=== PATIENT | female | born 1940 | race American Indian/Alaskan Native ===

== ENCOUNTER 2016-05-19 18:29 | Inpatient (IN) | payer MEDICARE ==
[2016-05-19 18:44] VITALS: BMI 25.6
--- NOTE | 2016-05-19 20:05 | C.PDOC ---
History Of Present Illness 76 year old female presents to the ED with complaints of upper chest pain, neck pain, bilateral shoulder pain, and upper back pain for the past 5 days. Patient states she also has a productive cough and notes the pain is worse with coughing. She has had could symptoms for the past month and denies fever, chills , SOB, or any other complaints at this time. Time Seen by Provider: 05/19/16 19:41 Chief Complaint (Nursing): Shortness Of Breath History Per: Patient History/Exam Limitations: no limitations Onset/Duration Of Symptoms: Days Current Symptoms Are (Timing): Still Present Exacerbating Factor(s): Coughing Severity: Mild Associated Symptoms: Productive Cough. denies: Fever, Chills Past Medical History Reviewed: Historical Data, Nursing Documentation, Vital Signs Vital Signs: Last Vital Signs Temp 98.1 F 05/20/16 07:20 Pulse 83 05/20/16 07:20 Resp 16 05/20/16 07:20 BP 171/69 H 05/20/16 07:20 Pulse Ox 98 05/20/16 07:20 - Medical History PMH: Arthritis, Bronchitis, CAD, HTN, Hypercholesterolemia - [facility] Procedures CORONAR ARTERIOGR-2 CATH (07/02/11) INJECT/INFUSE PLATELET INHIBITOR (07/02/11) INSERTION OF ONE VASCULAR STENT (07/02/11) INSRT OF DRUG-ELUTING CORON ARTERY STENTS(S) (07/02/11) INTRAVASCULAR IMAGING OF CORONARY VESSELS (07/02/11) LEFT HEART CARDIAC CATH (07/02/11) LT HEART ANGIOCARDIOGRAM (07/02/11) PERCUTANEOUS TRANSLUMINAL CORONARY ANGIOPLASTY [PTCA] (07/02/11) PROCEDURE ON SINGLE VESSEL (07/02/11) Family History: States: Unknown Family Hx - Social History Hx Tobacco Use: Yes (Smoked for many year but quit) Hx Alcohol Use: No Hx Substance Use: No - Immunization History Hx Tetanus Toxoid Vaccination: No Hx Influenza Vaccination: No Hx Pneumococcal Vaccination: No Review Of Systems Except As Marked, All Systems Reviewed And Found Negative. Constitutional: Negative for: Fever, Chills Cardiovascular: Negative for: Palpitations Respiratory: Positive for: Cough, Sputum. Negative for: Shortness of Breath Gastrointestinal: Negative for: Nausea, Vomiting, Abdominal Pain Musculoskeletal: Positive for: Neck Pain, Shoulder Pain, Back Pain (+Upper back pain), Other (+Upper chest pain) Neurological: Negative for: Weakness, Numbness Physical Exam - Physical Exam Appears: Well, Non-toxic, No Acute Distress Skin: Warm, Dry Head: Atraumatic, Normacephalic Eye(s): bilateral: Normal Inspection Oral Mucosa: Moist Neck: Normal ROM, Supple Chest: Symmetrical, No Deformity Cardiovascular: Rhythm Regular Respiratory: Decreased Breath Sounds (+Diminished breath sounds), No Accessory Muscle Use, No Rales, No Rhonchi, Wheezing Extremity: Normal ROM Neurological/Psych: Oriented x3, Normal Speech, Normal Cognition ED Course And Treatment - Laboratory Results Result Diagrams: 05/20/16 09:31 05/20/16 04:57 O2 Sat by Pulse Oximetry: 100 (Room air) Pulse Ox Interpretation: Normal Medical Decision Making Medical Decision Making: Plan: -CXR -Blood work -Flu swab -DuoNeb -Solu-Medrol -Reassess EKG: Normal Sinus Rhythm, 92 bpm. LVH with repolarization abnormality. No STEMI. CXR: +Bibasilar atelectasis. + Bilateral Pleural effusion. Progress: 22:53- Case discussed with Dr. Stockton who agreed with plan and admission to telemetry. requests prbc transfusion 2 units. Disposition - Disposition Disposition Time: 22:53 Condition: STABLE - Clinical Impression Clinical Impression: Anemia, iron deficiency, Pneumonia, Obstructive chronic bronchitis with exacerbation - Scribe Statement The provider has reviewed the documentation as recorded by the Scribe Alexa Ortiz. Provider Attestation: All medical record entries made by the Scribe were at my direction and personally dictated by me. I have reviewed the chart and agree that the record accurately reflects my personal performance of the history, physical exam, medical decision making, and the department course for this patient. I have also personally directed, reviewed, and agree with the discharge instructions and disposition.
[2016-05-19 20:07] LABS: BASO # 0.1 K/uL (0.0-0.2); BASO % 0.3 % (0.0-2.0); EOS % 0.1 % (0.0-4.0); HEMATOCRIT 25.1 % (34.0-47.0); LYMPH % 18.8 % (20.0-40.0); MEAN CELL VOLUME 67.9 fL (81.0-99.0); MEAN CORPUSCULAR HEMOGLOBIN 20.6 pg (27.0-31.0); MEAN CORPUSCULAR HGB CONC 30.3 g/dL (33.0-37.0); MEAN PLATELET VOLUME 7.7 fL (7.2-11.7); MONO % 6.5 % (0.0-10.0); RED CELL DISTRIBUTION WIDTH 20.2 % (11.5-14.5); WHITE BLOOD COUNT 15.7 K/uL (4.8-10.8)
[2016-05-19] MEDS: Albuterol-Ipratrop 3 mg / 0.5 (3 ml) UD IH SCH ×3 (20:10→20:40)
[2016-05-19 20:14] LABS: CHLORIDE 92 mmol/L (98-107)
[2016-05-19 20:15] LABS: POTASSIUM 3.4 mmol/L (3.6-5.2); SODIUM 135 mmol/L (132-148)
[2016-05-19 20:17] LABS: ALKALINE PHOSPHATASE 95 U/L (38-126); ALT/SGPT 9 U/L (9-52); AST/SGOT 16 U/L (14-36); BILIRUBIN,TOTAL 0.5 mg/dL (0.2-1.3); BLOOD UREA NITROGEN 15 mg/dL (7-17); CARBON DIOXIDE 24 mmol/L (22-30); GFR AFRICAN-AMERICAN > 60; TOTAL PROTEIN 8.9 g/dL (6.3-8.3)
[2016-05-19 20:18] LABS: CALCIUM 9.5 mg/dl (8.6-10.4); GLUCOSE,RANDOM 111 mg/dL (65-105)
[2016-05-19] MEDS ORDERED: MethylPREDNISolone 40 mg Vial ONE (20:22)
[2016-05-19] MEDS ORDERED: Albuterol-Ipratrop 3 mg / 0.5 (3 ml) UD ONE (20:22)
[2016-05-19 20:35] LABS: VENOUS BLOOD GAS BASE EXCESS -0.2 mmol/L (0.0-2.0); VENOUS BLOOD GAS PCO2 47 mmHg (40-60); VENOUS BLOOD PH 7.35 (7.32-7.43)
[2016-05-19] MEDS ORDERED: Azithromycin 500 MG in Sodium Chloride 0.9% 250 ML IVPB STA (21:36)
[2016-05-19] MEDS ORDERED: cefTRIAXone IV 1 gm in Dextros 50 ML IVPB ONE (21:48)
[2016-05-19] MEDS ORDERED: Azithromycin 500mg/250ML NS 250 ML IVPB ONE (22:45)
[2016-05-20] MEDS ORDERED: Morphine 4 MG/ML VIAL ONE (00:14)
[2016-05-20] MEDS: Albuterol-Ipratrop 3 mg / 0.5 (3 ml) UD INH SCH ×6 (03:58→23:33)
[2016-05-20 05:03] LABS: BASO % 0.2 % (0.0-2.0); HEMATOCRIT 28.2 % (34.0-47.0); LYMPH # 0.3 K/uL (1.0-4.3); LYMPH % 1.7 % (20.0-40.0); MEAN CELL VOLUME 71.4 fL (81.0-99.0); MEAN CORPUSCULAR HEMOGLOBIN 21.8 pg (27.0-31.0); MEAN CORPUSCULAR HGB CONC 30.6 g/dL (33.0-37.0); MEAN PLATELET VOLUME 7.7 fL (7.2-11.7); MONO # 0.2 K/uL (0.0-0.8); MONO % 1.2 % (0.0-10.0); PLATELET COUNT 410 K/uL (130-400); RED CELL DISTRIBUTION WIDTH 21.8 % (11.5-14.5); WHITE BLOOD COUNT 16.5 K/uL (4.8-10.8)
[2016-05-20 06:13] LABS: ALB/GLOB RATIO 0.9 (1.0-2.1); ALKALINE PHOSPHATASE 85 U/L (38-126); ALT/SGPT 25 U/L (9-52); AST/SGOT 16 U/L (14-36); BILIRUBIN,TOTAL 0.9 mg/dL (0.2-1.3); BLOOD UREA NITROGEN 12 mg/dL (7-17); CALCIUM 8.9 mg/dl (8.6-10.4); CARBON DIOXIDE 22 mmol/L (22-30); CHLORIDE 100 mmol/L (98-107); GFR AFRICAN-AMERICAN > 60; GLUCOSE,RANDOM 188 mg/dL (65-105); POTASSIUM 3.4 mmol/L (3.6-5.2); SODIUM 137 mmol/L (132-148); TOTAL PROTEIN 7.9 g/dL (6.3-8.3)
[2016-05-20 07:18] LABS: NEUTROPHIL 93 % (50-75); TOTAL CELLS COUNTED 100
[2016-05-20 07:20] LABS: LARGE PLATELETS PRESENT
[2016-05-20] MEDS ORDERED: Albuterol-Ipratrop 3 mg / 0.5 (3 ml) UD ONE ×2 (08:00→11:18)
--- NOTE | 2016-05-20 08:11 | RAD ---
HISTORY: sob x 5 days COMPARISON: No prior. FINDINGS: LUNGS: Bibasilar opacities are seen more prominent on the right. Findings could represent atelectasis or infiltrates. PLEURA: Blunting of the right costophrenic angle is noted. CARDIOVASCULAR: Normal. OSSEOUS STRUCTURES: No significant abnormalities. VISUALIZED UPPER ABDOMEN: Normal. OTHER FINDINGS: None. IMPRESSION: Bibasilar opacities may represent atelectasis. Blunting of the costophrenic angles.
[2016-05-20 09:39] LABS: BASO # 0.1 K/uL (0.0-0.2); BASO % 0.3 % (0.0-2.0); EOS % 0.1 % (0.0-4.0); HEMATOCRIT 32.6 % (34.0-47.0); LYMPH % 5.8 % (20.0-40.0); MEAN CORPUSCULAR HEMOGLOBIN 22.6 pg (27.0-31.0); MEAN CORPUSCULAR HGB CONC 30.5 g/dL (33.0-37.0); MEAN PLATELET VOLUME 7.6 fL (7.2-11.7); MONO # 0.4 K/uL (0.0-0.8); MONO % 2.3 % (0.0-10.0); NRBC % 0.1 % (0.0-2.0); PLATELET COUNT 347 K/uL (130-400); RED CELL DISTRIBUTION WIDTH 23.1 % (11.5-14.5)
[2016-05-20 09:41] LABS: MEAN CELL VOLUME 74.1 fL (81.0-99.0)
[2016-05-20] MEDS ORDERED: Azithromycin 500 MG in Sodium Chloride 0.9% 250 ML IVPB SCH (10:00)
[2016-05-20 10:04] LABS: NEUTROPHIL 93 % (50-75); TOTAL CELLS COUNTED 100
[2016-05-20 10:07] LABS: LARGE PLATELETS PRESENT
--- NOTE | 2016-05-20 10:46 | CT ---
CT chest without IV contrast Indication: Abnormal chest x-ray Technique: Contiguous axial images were obtained through the chest without intravenous contrast enhancement. Sagittal and coronal reconstructions were generated and reviewed. Radiation dose (DLP): 284.49 MGy-cm. Comparison: Chest x-ray performed 05/19/16 Findings: Visualized portions of the inferior thyroid gland appear grossly unremarkable except for probable 11 mm hypodense nodule at the left lower pole. The heart appears within normal limits of size. Dense atherosclerotic calcifications of the aorta. Coronary artery calcifications. Centrilobular emphysema. Bibasilar dependent atelectasis. No pleural effusion. No pneumothorax. No suspicious pulmonary nodules measuring greater than 5 mm. Small hiatal hernia/distal esophageal wall thickening. Limited visualization of the noncontrast upper abdomen reveals gallstone within the gallbladder. No acute osseous abnormality identified. Punctate calcification within the soft tissues of the right breast, nonspecific. Impression: Centrilobular emphysema. Bibasilar dependent atelectasis. Cholelithiasis. Small hiatal hernia/distal esophageal wall thickening. Probable 11 mm hypodense nodule, left lower pole thyroid gland. Outpatient thyroid ultrasound may be considered for further evaluation.
[2016-05-20] MEDS: Pantoprazole 40 mg EC Tab PO SCH (12:40)
[2016-05-20] MEDS: cefTRIAXone IV 1 gm in Dextros 1 GM in Dextrose 5% In Water 50 ML IVPB SCH (12:44)
--- NOTE | 2016-05-20 12:45 | CP.PCM.CON ---
History of Present Illness - History of Present Illness History of Present Illness: CC: Anemia HPI: GI consult requested for severe anemia. Came to ER with 4 day history of dyspnea, chest and neck and back pains. No GI symptoms or overt bleeding. Hgb was 7, and patient was transfused to Hgb 10. Patient states she is cheonically anemic, and was recommended to have Colonoscopy however her cardiac risk was a concern so Colonoscopy was not done. She was in [facility] 2 years ago for rectal bleeding, but is not aware of what evaluation was undertaken. Patient has extensive coronary disease, and had stents placed [address] Judd is evaluating from a cardiac perspective. Stool is negative for occult blood. Patient currently is in ICU. Discussed with Dr Judd. Review of Systems - Constitutional Constitutional: absent: Chills, Weight Loss - EENT Eyes: absent: Change in Vision Ears: absent: Ear Pain Nose/Mouth/Throat: absent: Nasal Discharge - Cardiovascular Cardiovascular: Chest Pain, Chest Pain at Rest, Diaphoresis, Dyspnea - Respiratory Respiratory: Dyspnea, Dyspnea on Exertion, Chest Congestion - Gastrointestinal Gastrointestinal: absent: Abdominal Pain, Change in Stool Character, Constipation, Diarrhea, Dyspepsia, Dysphagia, Early Satiety, Hematochezia, Melena - Genitourinary Genitourinary: absent: Change in Urinary Stream - Musculoskeletal Musculoskeletal: Back Pain - Integumentary Integumentary: absent: Lesions - Neurological Neurological: Headaches. absent: Syncope - Psychiatric Psychiatric: absent: Mood Swings - Endocrine Endocrine: absent: Polydipsia - Hematologic/Lymphatic Hematologic: absent: Easy Bleeding Past Patient History - Past Social History Smoking Status: Smoker Currrent Status Unknown - CARDIAC Hx Hypercholesterolemia: Yes Hx Hypertension: Yes - PULMONARY Hx Bronchitis: Yes - HEENT Hx HEENT Problems: Yes (GLAUCOMA) Hx Glaucoma: Yes - MUSCULOSKELETAL/RHEUMATOLOGICAL Hx Arthritis: Yes - GASTROINTESTINAL Hx Gastrointestinal Disorders: Yes (HEMORRHOIDS,CONSTIPATION) Hx Constipation: Yes - PSYCHIATRIC Hx Substance Use: No - SURGICAL HISTORY Hx Surgeries: Yes Hx Hysterectomy: Yes Meds Allergies/Adverse Reactions: Allergies Allergy/AdvReac Type Severity Reaction Status Date / Time No Known Allergies Allergy Verified 05/19/16 18:44 - Medications Medications: Current Medications Albuterol/Ipratropium (Duoneb 3 Mg/0.5 Mg (3 Ml) Ud) 3 ml INH RQ4 SHAMIR Last Admin: 05/20/16 11:36 Dose: 3 ml Amlodipine Besylate (Norvasc) 10 mg PO DAILY [facility] Clonidine HCl (Catapres) 0.1 mg PO BID SHAMIR Azithromycin 500 mg/ Sodium (Chloride) 250 mls @ 250 mls/hr IVPB DAILY [facility] Ceftriaxone Sodium 1 gm/ (Dextrose) 100 mls @ 50 mls/30 min IVPB DAILY [facility] Losartan Potassium (Cozaar) 100 mg PO DAILY [facility] Pantoprazole Sodium (Protonix Ec Tab) 40 mg PO DAILY [facility] Rosuvastatin Calcium (Crestor) 10 mg PO HS SHAMIR Physical Exam - Constitutional Appears: Well, No Acute Distress - Head Exam Head Exam: ATRAUMATIC, NORMOCEPHALIC - Eye Exam Eye Exam: Normal appearance. absent: Scleral icterus - ENT Exam ENT Exam: Normal Exam - Neck Exam Neck exam: Positive for: Normal Inspection - Respiratory Exam Respiratory Exam: Clear to Auscultation Bilateral - Cardiovascular Exam Cardiovascular Exam: REGULAR RHYTHM - GI/Abdominal Exam GI & Abdominal Exam: Soft. absent: Mass, Organomegaly, Tenderness - Rectal Exam Rectal Exam: Deferred - Extremities Exam Extremities exam: Positive for: normal inspection - Neurological Exam Neurological exam: Alert, Oriented x3 - Psychiatric Exam Psychiatric exam: Normal Mood - Skin Skin Exam: Warm Results - Vital Signs Recent Vital Signs: Last Vital Signs Temp 98.1 F 05/20/16 07:20 Pulse 83 05/20/16 07:20 Resp 16 05/20/16 07:20 BP 171/69 H 05/20/16 07:20 Pulse Ox 98 05/20/16 07:20 - Labs Result Diagrams: 05/20/16 09:31 05/20/16 04:57 Labs: Laboratory Results - last 24 hr 05/19/16 05/20/16 05/20/16 23:20 00:40 04:57 WBC 16.5 H RBC 3.95 Hgb 8.6 L Hct 28.2 L MCV 71.4 L D MCH 21.8 L MCHC 30.6 L RDW 21.8 H Plt Count 410 H MPV 7.7 Neut % (Auto) 96.9 H Lymph % (Auto) 1.7 L [place] % (Auto) 1.2 Eos % (Auto) 0.0 Baso % (Auto) 0.2 Neut # 16.0 H Lymph # 0.3 L [place] # 0.2 Eos # 0.0 Baso # 0.0 Neutrophils % (Manual) 93 H Band Neutrophils % 1 Lymphocytes % (Manual) 5 L Monocytes % (Manual) 1 Platelet Estimate Slightly increased H Large Platelets Present Hypochromasia (manual) Moderate Poikilocytosis (manual Slight Anisocytosis (manual) Moderate Target Cells Slight Ovalocytes Slight Shashank Cells Sodium 137 Potassium 3.4 L Chloride 100 Carbon Dioxide 22 Anion Gap 18 BUN 12 Creatinine 0.9 Est GFR ( Amer) > 60 Est GFR (Non-Af Amer) > 60 Random Glucose 188 H Calcium 8.9 Total Bilirubin 0.9 AST 16 ALT 25 Alkaline Phosphatase 85 Total Creatine Kinase 47 CK-MB (Mass) 0.44 Troponin I, Quant < 0.0120 Total Protein 7.9 Albumin 3.7 Globulin 4.2 H Albumin/Globulin Ratio 0.9 L Stool Occult Blood Negative Blood Type A POSITIVE Antibody Screen Negative 05/20/16 09:31 WBC 18.0 H RBC 4.41 Hgb 10.0 L Hct 32.6 L MCV 74.1 L D MCH 22.6 L MCHC 30.5 L RDW 23.1 H Plt Count 347 MPV 7.6 Neut % (Auto) 91.5 H Lymph % (Auto) 5.8 L [place] % (Auto) 2.3 Eos % (Auto) 0.1 Baso % (Auto) 0.3 Neut # 16.4 H Lymph # 1.0 [place] # 0.4 Eos # 0.0 Baso # 0.1 Neutrophils % (Manual) 93 H Band Neutrophils % Lymphocytes % (Manual) 4 L Monocytes % (Manual) 3 Platelet Estimate Normal Large Platelets Present Hypochromasia (manual) Moderate Poikilocytosis (manual Slight Anisocytosis (manual) Moderate Target Cells Slight Ovalocytes [place] Cells Slight Sodium Potassium Chloride Carbon Dioxide Anion Gap BUN Creatinine Est GFR ( Amer) Est GFR (Non-Af Amer) Random Glucose Calcium Total Bilirubin AST ALT Alkaline Phosphatase Total Creatine Kinase CK-MB (Mass) Troponin I, Quant Total Protein Albumin Globulin Albumin/Globulin Ratio Stool Occult Blood Blood Type Antibody Screen Assessment & Plan (1) Anemia, iron deficiency Assessment and Plan: Acute on chronic symptomatic anemia. R/O Occult GI blood losses Rec: Will need EGD and Colonoscopy once cleared for procedures by Cariology. Discussed with Dr Judd Status: Acute (2) Coronary arteriosclerosis in [place] artery Assessment and Plan: Cardiac evaluation will be undertaken Status: Acute
--- NOTE | 2016-05-20 12:46 | CP.PCM.HP ---
History of Present Illness - History of Present Illness History of Present Illness: CC: SOB HPI: 76 y/o female H/o CAD S/p stent seen in ER c/o SOB, chestpain and fatigue few days. Deny loss of weight. Deny vomitting, rectal bleed and abdominal pain Present on Admission - Present on Admission Any Indicators Present on Admission: Yes History of DVT/PE: No History of Uncontrolled Diabetes: No Urinary Catheter: No Decubitus Ulcer Present: No Review of Systems - Review of Systems All systems: reviewed and no additional remarkable complaints except (c/o SOB, Backpain, Chestpain, fatigue) Past Patient History - Past Social History Smoking Status: Smoker Currrent Status Unknown - CARDIAC Hx Hypercholesterolemia: Yes Hx Hypertension: Yes - PULMONARY Hx Bronchitis: Yes - HEENT Hx HEENT Problems: Yes (GLAUCOMA) Hx Glaucoma: Yes - MUSCULOSKELETAL/RHEUMATOLOGICAL Hx Arthritis: Yes - GASTROINTESTINAL Hx Gastrointestinal Disorders: Yes (HEMORRHOIDS,CONSTIPATION) Hx Constipation: Yes - PSYCHIATRIC Hx Substance Use: No - SURGICAL HISTORY Hx Surgeries: Yes Hx Hysterectomy: Yes Meds Allergies/Adverse Reactions: Allergies Allergy/AdvReac Type Severity Reaction Status Date / Time No Known Allergies Allergy Verified 05/19/16 18:44 Physical Exam - Constitutional Appears: Non-toxic - Head Exam Head Exam: NORMAL INSPECTION - Eye Exam Eye Exam: Normal appearance - Neck Exam Neck exam: Positive for: Normal Inspection - Respiratory Exam Respiratory Exam: Decreased Breath Sounds - Cardiovascular Exam Cardiovascular Exam: REGULAR RHYTHM (soft murmur noted) - GI/Abdominal Exam GI & Abdominal Exam: Firm - Rectal Exam Rectal Exam: Deferred - Extremities Exam Extremities exam: Positive for: normal inspection - Neurological Exam Neurological exam: Alert Results - Vital Signs Recent Vital Signs: Last Vital Signs Temp 98.1 F 05/20/16 07:20 Pulse 83 05/20/16 07:20 Resp 16 05/20/16 07:20 BP 171/69 H 05/20/16 07:20 Pulse Ox 98 05/20/16 07:20 - Labs Result Diagrams: 05/20/16 09:31 05/20/16 04:57 Labs: Laboratory Results - last 24 hr 05/19/16 05/20/16 05/20/16 23:20 00:40 04:57 WBC 16.5 H RBC 3.95 Hgb 8.6 L Hct 28.2 L MCV 71.4 L D MCH 21.8 L MCHC 30.6 L RDW 21.8 H Plt Count 410 H MPV 7.7 Neut % (Auto) 96.9 H Lymph % (Auto) 1.7 L [place] % (Auto) 1.2 Eos % (Auto) 0.0 Baso % (Auto) 0.2 Neut # 16.0 H Lymph # 0.3 L [place] # 0.2 Eos # 0.0 Baso # 0.0 Neutrophils % (Manual) 93 H Band Neutrophils % 1 Lymphocytes % (Manual) 5 L Monocytes % (Manual) 1 Platelet Estimate Slightly increased H Large Platelets Present Hypochromasia (manual) Moderate Poikilocytosis (manual Slight Anisocytosis (manual) Moderate Target Cells Slight Ovalocytes Slight Shashank Cells Sodium 137 Potassium 3.4 L Chloride 100 Carbon Dioxide 22 Anion Gap 18 BUN 12 Creatinine 0.9 Est GFR ( Amer) > 60 Est GFR (Non-Af Amer) > 60 Random Glucose 188 H Calcium 8.9 Total Bilirubin 0.9 AST 16 ALT 25 Alkaline Phosphatase 85 Total Creatine Kinase 47 CK-MB (Mass) 0.44 Troponin I, Quant < 0.0120 Total Protein 7.9 Albumin 3.7 Globulin 4.2 H Albumin/Globulin Ratio 0.9 L Stool Occult Blood Negative Blood Type A POSITIVE Antibody Screen Negative 05/20/16 09:31 WBC 18.0 H RBC 4.41 Hgb 10.0 L Hct 32.6 L MCV 74.1 L D MCH 22.6 L MCHC 30.5 L RDW 23.1 H Plt Count 347 MPV 7.6 Neut % (Auto) 91.5 H Lymph % (Auto) 5.8 L [place] % (Auto) 2.3 Eos % (Auto) 0.1 Baso % (Auto) 0.3 Neut # 16.4 H Lymph # 1.0 [place] # 0.4 Eos # 0.0 Baso # 0.1 Neutrophils % (Manual) 93 H Band Neutrophils % Lymphocytes % (Manual) 4 L Monocytes % (Manual) 3 Platelet Estimate Normal Large Platelets Present Hypochromasia (manual) Moderate Poikilocytosis (manual Slight Anisocytosis (manual) Moderate Target Cells Slight Ovalocytes Shashank Cells Slight Sodium Potassium Chloride Carbon Dioxide Anion Gap BUN Creatinine Est GFR ( Amer) Est GFR (Non-Af Amer) Random Glucose Calcium Total Bilirubin AST ALT Alkaline Phosphatase Total Creatine Kinase CK-MB (Mass) Troponin I, Quant Total Protein Albumin Globulin Albumin/Globulin Ratio Stool Occult Blood Blood Type Antibody Screen Assessment & Plan - Assessment and Plan (Free Text) Assessment: A: Anemia, CAD, H/o Hypertension P: Received 2 u PRBC. Repeat CBC. GI consult Dr. Poe, Cardiology consult Dr. Judd
[2016-05-20] MEDS ORDERED: Potassium Chloride 20 mEq ER Tab PO ONE (13:48)
[2016-05-20 14:29] LABS: T4 8.54 ug/dL (5.5-11.0)
[2016-05-20 14:43] LABS: THYROID STIMULATING HORMONE 0.26 mIU/L (0.46-4.68)
[2016-05-20 16:15] LABS: T4 9.32 ug/dL (5.5-11.0)
[2016-05-20 16:29] LABS: THYROID STIMULATING HORMONE 0.14 mIU/L (0.46-4.68)
--- NOTE | 2016-05-20 21:08 | CP.PCM.CON ---
History of Present Illness - History of Present Illness History of Present Illness: Reason For Consultation Dyspnea, Anemia and Chest Pain 76 year old female presents to the ED with complaints of upper chest pain, neck pain, bilateral shoulder pain, and upper back pain for the past 5 days. Patient states she also has a productive cough and notes the pain is worse with coughing. She has had could symptoms for the past month and denies fever, chills , SOB, or any other complaints at this time. Chief Complaint (Nursing): Shortness Of Breath History Per: Patient History/Exam Limitations: no limitations Onset/Duration Of Symptoms: Days Current Symptoms Are (Timing): Still Present Exacerbating Factor(s): Coughing Severity: Mild Associated Symptoms: Productive Cough. denies: Fever, Chills Past Medical History Reviewed: Historical Data, Nursing Documentation, Vital Signs Vital Signs: Last Vital Signs Temp 98.1 F 05/20/16 07:20 Pulse 83 05/20/16 07:20 Resp 16 05/20/16 07:20 BP 171/69 H 05/20/16 07:20 Pulse Ox 98 05/20/16 07:20 - Medical History PMH: Arthritis, Bronchitis, CAD, HTN, Hypercholesterolemia, CAD s/p stents - [facility] Procedures CORONAR ARTERIOGR-2 CATH (07/02/11) INJECT/INFUSE PLATELET INHIBITOR (07/02/11) INSERTION OF ONE VASCULAR STENT (07/02/11) INSRT OF DRUG-ELUTING CORON ARTERY STENTS(S) (07/02/11) INTRAVASCULAR IMAGING OF CORONARY VESSELS (07/02/11) LEFT HEART CARDIAC CATH (07/02/11) LT HEART ANGIOCARDIOGRAM (07/02/11) PERCUTANEOUS TRANSLUMINAL CORONARY ANGIOPLASTY [PTCA] (07/02/11) PROCEDURE ON SINGLE VESSEL (07/02/11) Family History: States: Unknown Family Hx - Social History Hx Tobacco Use: Yes (Smoked for many year but quit) Hx Alcohol Use: No Hx Substance Use: No - Immunization History Hx Tetanus Toxoid Vaccination: No Hx Influenza Vaccination: No Hx Pneumococcal Vaccination: No Review Of Systems Except As Marked, All Systems Reviewed And Found Negative. Constitutional: Negative for: Fever, Chills Cardiovascular: Negative for: Palpitations Respiratory: Positive for: Cough, Sputum. Negative for: Shortness of Breath Gastrointestinal: Negative for: Nausea, Vomiting, Abdominal Pain Musculoskeletal: Positive for: Neck Pain, Shoulder Pain, Back Pain (+Upper back pain), Other (+Upper chest pain) Neurological: Negative for: Weakness, Numbness Physical Exam - Physical Exam Appears: Well, Non-toxic, No Acute Distress Skin: Warm, Dry Head: Atraumatic, Normacephalic Eye(s): bilateral: Normal Inspection Oral Mucosa: Moist Neck: Normal ROM, Supple Chest: Symmetrical, No Deformity Cardiovascular: Rhythm Regular Respiratory: Decreased Breath Sounds (+Diminished breath sounds), No Accessory Muscle Use, No Rales, No Rhonchi, Wheezing Extremity: Normal ROM Neurological/Psych: Oriented x3, Normal Speech, Normal Cognition Past Patient History - Past Medical History & Family History Past Medical History?: Yes - Past Social History Smoking Status: Smoker Currrent Status Unknown - CARDIAC Hx Hypercholesterolemia: Yes Hx Hypertension: Yes - PULMONARY Hx Bronchitis: Yes - NEUROLOGICAL Hx Neurological Disorder: No - HEENT Hx HEENT Problems: Yes (GLAUCOMA) Hx Glaucoma: Yes - RENAL Hx Chronic Kidney Disease: No - ENDOCRINE/METABOLIC Hx Endocrine Disorders: No - HEMATOLOGICAL/ONCOLOGICAL Hx Anemia: Yes Hx Blood Transfusions: Yes - INTEGUMENTARY Hx Dermatological Problems: No - MUSCULOSKELETAL/RHEUMATOLOGICAL Hx Arthritis: Yes - GASTROINTESTINAL Hx Gastrointestinal Disorders: Yes (HEMORRHOIDS,CONSTIPATION) Hx Constipation: Yes - GENITOURINARY/GYNECOLOGICAL Hx Genitourinary Disorders: No - PSYCHIATRIC Hx Substance Use: No - SURGICAL HISTORY Hx Surgeries: Yes Hx Hysterectomy: Yes - ANESTHESIA Hx Anesthesia: Yes Hx Anesthesia Reactions: No Meds Allergies/Adverse Reactions: Allergies Allergy/AdvReac Type Severity Reaction Status Date / Time No Known Allergies Allergy Verified 05/19/16 18:44 - Medications Medications: Current Medications Acetaminophen (Tylenol 325mg Tab) 325 mg PO QID [facility] Last Admin: 05/20/16 19:00 Dose: 325 mg Albuterol/Ipratropium (Duoneb 3 Mg/0.5 Mg (3 Ml) Ud) 3 ml INH RQ4 [facility] Last Admin: 05/20/16 19:36 Dose: 3 ml Amlodipine Besylate (Norvasc) 10 mg PO DAILY [facility] Last Admin: 05/20/16 12:40 Dose: 10 mg Clonidine HCl (Catapres) 0.1 mg PO BID [facility] Last Admin: 05/20/16 17:53 Dose: 0.1 mg Azithromycin 500 mg/ Sodium (Chloride) 250 mls @ 250 mls/hr IVPB DAILY [facility] Last Admin: 05/20/16 12:46 Dose: 250 mls/hr Ceftriaxone Sodium 1 gm/ (Dextrose) 100 mls @ 50 mls/30 min IVPB DAILY [facility] Last Admin: 05/20/16 12:44 Dose: 50 mls/30 min Losartan Potassium (Cozaar) 100 mg PO DAILY [facility] Last Admin: 05/20/16 12:41 Dose: 100 mg Pantoprazole Sodium (Protonix Ec Tab) 40 mg PO DAILY [facility] Last Admin: 05/20/16 12:40 Dose: 40 mg Pneumococcal Polyvalent Vaccine (Pneumovax 23 Vaccine) 0.5 ml IM .ONCE ONE Stop: 05/22/16 10:01 Rosuvastatin Calcium (Crestor) 10 mg PO [facility] Results - Vital Signs Recent Vital Signs: Last Vital Signs Temp 98.1 F 05/20/16 16:00 Pulse 86 05/20/16 16:46 Resp 22 05/20/16 18:00 BP 157/64 H 05/20/16 18:00 Pulse Ox 100 05/20/16 14:00 - Labs Result Diagrams: 05/20/16 09:31 05/20/16 04:57 Labs: Laboratory Results - last 24 hr 05/19/16 05/20/16 05/20/16 23:20 00:40 04:57 WBC 16.5 H RBC 3.95 Hgb 8.6 L Hct 28.2 L MCV 71.4 L D MCH 21.8 L MCHC 30.6 L RDW 21.8 H Plt Count 410 H MPV 7.7 Neut % (Auto) 96.9 H Lymph % (Auto) 1.7 L [place] % (Auto) 1.2 Eos % (Auto) 0.0 Baso % (Auto) 0.2 Neut # 16.0 H Lymph # 0.3 L [place] # 0.2 Eos # 0.0 Baso # 0.0 Neutrophils % (Manual) 93 H Band Neutrophils % 1 Lymphocytes % (Manual) 5 L Monocytes % (Manual) 1 Platelet Estimate Slightly increased H Large Platelets Present Hypochromasia (manual) Moderate Poikilocytosis (manual Slight Anisocytosis (manual) Moderate Target Cells Slight Ovalocytes Slight Shashank Cells Sodium 137 Potassium 3.4 L Chloride 100 Carbon Dioxide 22 Anion Gap 18 BUN 12 Creatinine 0.9 Est GFR ( Amer) > 60 Est GFR (Non-Af Amer) > 60 Random Glucose 188 H Calcium 8.9 Total Bilirubin 0.9 AST 16 ALT 25 Alkaline Phosphatase 85 Total Creatine Kinase 47 CK-MB (Mass) 0.44 Troponin I Troponin I, Quant < 0.0120 NT-Pro-B Natriuret Pep Total Protein 7.9 Albumin 3.7 Globulin 4.2 H Albumin/Globulin Ratio 0.9 L Thyroxine (T4) 8.54 TSH 3rd Generation 0.26 L Stool Occult Blood Negative Blood Type A POSITIVE Antibody Screen Negative 05/20/16 05/20/16 09:31 15:35 WBC 18.0 H RBC 4.41 Hgb 10.0 L Hct 32.6 L MCV 74.1 L D MCH 22.6 L MCHC 30.5 L RDW 23.1 H Plt Count 347 MPV 7.6 Neut % (Auto) 91.5 H Lymph % (Auto) 5.8 L [place] % (Auto) 2.3 Eos % (Auto) 0.1 Baso % (Auto) 0.3 Neut # 16.4 H Lymph # 1.0 [place] # 0.4 Eos # 0.0 Baso # 0.1 Neutrophils % (Manual) 93 H Band Neutrophils % Lymphocytes % (Manual) 4 L Monocytes % (Manual) 3 Platelet Estimate Normal Large Platelets Present Hypochromasia (manual) Moderate Poikilocytosis (manual Slight Anisocytosis (manual) Moderate Target Cells Slight Ovalocytes Shashank Cells Slight Sodium Potassium Chloride Carbon Dioxide Anion Gap BUN Creatinine Est GFR ( Amer) Est GFR (Non-Af Amer) Random Glucose Calcium Total Bilirubin AST ALT Alkaline Phosphatase Total Creatine Kinase CK-MB (Mass) Troponin I < 0.0120 Troponin I, Quant NT-Pro-B Natriuret Pep 2460 H Total Protein Albumin Globulin Albumin/Globulin Ratio Thyroxine (T4) 9.32 TSH 3rd Generation 0.14 L Stool Occult Blood Blood Type Antibody Screen Assessment & Plan - Assessment and Plan (Free Text) Assessment: 76 F with Hx of CAD s/p stents more than 5 years ago admitted for anemia, dyspnea and chest pain Chest pain atypical and 3 sets of cardiac enzymes are normal. ProBNP elevated. Patient symptom free after transfusion. ECHO shows normal EF and normal wall motion Moderate MR and moderate Pulmonary HTN She is assessed as low to intermediate risk for cardiac events for endoscopy and colonoscopy under concious sedation Recommend to proceed with Endoscopy and Colonoscopy if the procedures are clinically indicated
[2016-05-21] MEDS: Albuterol-Ipratrop 3 mg / 0.5 (3 ml) UD INH SCH ×6 (03:08→23:40)
--- NOTE | 2016-05-21 09:08 | CP.PCM.PN ---
Subjective - Date & Time of Evaluation Date of Evaluation: 05/21/16 Time of Evaluation: 08:25 - Subjective Subjective: Pt feels much better compare to yesterday No CP, no SOB, santosh dec cough; Only sore on pack/ left shoulder but good movement Objective - Vital Signs/Intake and Output Vital Signs (last 24 hours): Temp Pulse Resp BP Pulse Ox 97.6 F 98 H 13 139/51 L 100 05/21/16 08:00 05/21/16 08:00 05/21/16 08:00 05/21/16 07:31 05/21/16 08:00 Intake and Output: 05/21/16 05/21/16 06:59 18:59 Intake Total 480 200 Output Total 600 Balance -120 200 - Medications Medications: Current Medications Acetaminophen (Tylenol 325mg Tab) 325 mg PO QID [facility] Last Admin: 05/20/16 21:45 Dose: 325 mg Albuterol/Ipratropium (Duoneb 3 Mg/0.5 Mg (3 Ml) Ud) 3 ml INH RQ4 [facility] Last Admin: 05/21/16 07:39 Dose: 3 ml Amlodipine Besylate (Norvasc) 10 mg PO DAILY [facility] Last Admin: 05/20/16 12:40 Dose: 10 mg Clonidine HCl (Catapres) 0.1 mg PO BID [facility] Last Admin: 05/20/16 17:53 Dose: 0.1 mg Ceftriaxone Sodium 1 gm/ (Dextrose) 100 mls @ 50 mls/30 min IVPB DAILY [facility] Last Admin: 05/20/16 12:44 Dose: 50 mls/30 min Losartan Potassium (Cozaar) 100 mg PO DAILY [facility] Last Admin: 05/20/16 12:41 Dose: 100 mg Pantoprazole Sodium (Protonix Ec Tab) 40 mg PO DAILY [facility] Last Admin: 05/20/16 12:40 Dose: 40 mg Pneumococcal Polyvalent Vaccine (Pneumovax 23 Vaccine) 0.5 ml IM .ONCE ONE Stop: 05/22/16 10:01 Rosuvastatin Calcium (Crestor) 10 mg PO [facility] Last Admin: 05/20/16 21:45 Dose: 10 mg - Labs Labs: 05/20/16 09:31 05/20/16 04:57 - Constitutional Appears: No Acute Distress - Eye Exam Eye Exam: Normal appearance - ENT Exam ENT Exam: Mucous Membranes Moist - Neck Exam Neck Exam: Full ROM. absent: Meningismus - Respiratory Exam Respiratory Exam: Clear to Ausculation Bilateral. absent: Rales, Rhonchi, Wheezes - Cardiovascular Exam Cardiovascular Exam: Gallop, REGULAR RHYTHM, +S1, +S2, Murmur. absent: Diastolic murmur - GI/Abdominal Exam GI & Abdominal Exam: Soft. absent: Tenderness, Mass - Extremities Exam Extremities Exam: Joint Swelling, Normal Capillary Refill. absent: Calf Tenderness, Pedal Edema Assessment and Plan - Assessment and Plan (Free Text) Assessment: Hyperthyroidism; hypokalemia CAD; COPD w/ Abn CXR Check Mg stop Azithromycin Cont meds; Start Advair Endo consult
[2016-05-21] MEDS: Pantoprazole 40 mg EC Tab PO SCH (10:42)
[2016-05-21] MEDS: cefTRIAXone IV 1 gm in Dextros 1 GM in Dextrose 5% In Water 50 ML IVPB SCH (10:43)
[2016-05-21 12:22] LABS: BASO # 0.1 K/uL (0.0-0.2); BASO % 0.5 % (0.0-2.0); EOS % 0.1 % (0.0-4.0); HEMATOCRIT 32.8 % (34.0-47.0); LYMPH # 2.8 K/uL (1.0-4.3); LYMPH % 12.4 % (20.0-40.0); MEAN CELL VOLUME 74.7 fL (81.0-99.0); MEAN CORPUSCULAR HEMOGLOBIN 23.6 pg (27.0-31.0); MEAN CORPUSCULAR HGB CONC 31.6 g/dL (33.0-37.0); MEAN PLATELET VOLUME 7.9 fL (7.2-11.7); MONO # 1.3 K/uL (0.0-0.8); MONO % 5.9 % (0.0-10.0); RED CELL DISTRIBUTION WIDTH 22.2 % (11.5-14.5); WHITE BLOOD COUNT 22.7 K/uL (4.8-10.8)
--- NOTE | 2016-05-21 12:24 | CP.PCM.PN ---
Subjective - Date & Time of Evaluation Date of Evaluation: 05/21/16 Time of Evaluation: 11:40 - Subjective Subjective: F/U anemia. Family is present. Denies Cp, SOB, abdom pain, RB, melena, fever, dysphagia, ALAN Objective - Vital Signs/Intake and Output Vital Signs (last 24 hours): Temp Pulse Resp BP Pulse Ox 97.6 F 88 18 164/69 H 100 05/21/16 08:00 05/21/16 12:00 05/21/16 12:00 05/21/16 11:30 05/21/16 12:00 Intake and Output: 05/21/16 05/21/16 06:59 18:59 Intake Total 480 450 Output Total 600 Balance -120 450 - Medications Medications: Current Medications Acetaminophen (Tylenol 325mg Tab) 325 mg PO QID [facility] Last Admin: 05/21/16 10:41 Dose: 325 mg Albuterol/Ipratropium (Duoneb 3 Mg/0.5 Mg (3 Ml) Ud) 3 ml INH RQ4 [facility] Last Admin: 05/21/16 11:48 Dose: 3 ml Amlodipine Besylate (Norvasc) 10 mg PO DAILY [facility] Last Admin: 05/21/16 10:42 Dose: 10 mg Clonidine HCl (Catapres) 0.1 mg PO BID [facility] Last Admin: 05/21/16 10:42 Dose: 0.1 mg Ceftriaxone Sodium 1 gm/ (Dextrose) 100 mls @ 50 mls/30 min IVPB DAILY [facility] Last Admin: 05/21/16 10:43 Dose: 50 mls/30 min Losartan Potassium (Cozaar) 100 mg PO DAILY [facility] Last Admin: 05/21/16 10:42 Dose: 100 mg Pantoprazole Sodium (Protonix Ec Tab) 40 mg PO DAILY [facility] Last Admin: 05/21/16 10:42 Dose: 40 mg Pneumococcal Polyvalent Vaccine (Pneumovax 23 Vaccine) 0.5 ml IM .ONCE ONE Stop: 05/22/16 10:01 Rosuvastatin Calcium (Crestor) 10 mg PO HS [facility] Last Admin: 05/20/16 21:45 Dose: 10 mg Fluticasone/Salmeterol (Advair Diskus 500/50) 1 puff INH RQ12 [facility] - Labs Labs: 05/20/16 09:31 05/20/16 04:57 - Constitutional Appears: Non-toxic - Neck Exam Neck Exam: absent: Tenderness - Respiratory Exam Respiratory Exam: Rhonchi - Cardiovascular Exam Cardiovascular Exam: RRR - GI/Abdominal Exam GI & Abdominal Exam: Soft, Normal Bowel Sounds. absent: Tenderness - Extremities Exam Extremities Exam: absent: Calf Tenderness - Neurological Exam Neurological Exam: Alert, Awake, Oriented x3 Assessment and Plan (1) Anemia, iron deficiency Assessment & Plan: Consider lower GI lesion, vs upper Gi- ulcer, gastritis. Plan: colonoscopy, endoscopy when cleared by cardiology. Status: Acute (2) COPD exacerbation Status: Acute (3) Coronary arteriosclerosis in wiyot artery Status: Acute
[2016-05-21 12:29] LABS: POTASSIUM 4.4 mmol/L (3.6-5.2)
[2016-05-21 12:33] LABS: CALCIUM 9.3 mg/dl (8.6-10.4); MAGNESIUM 2.1 mg/dL (1.6-2.3)
--- NOTE | 2016-05-21 16:04 | CARD ---
APPROVED REPORT EXAM: Two-dimensional and M-mode echocardiogram with Doppler and color Doppler. Other Information Quality : GoodRhythm : INDICATION Dyspnea Cardiac Disease: CAD Murmur Congestive Heart Failure Surgery/Intervention Status/Post Intervention: Stent RISK FACTORS Hypertension Hyperlipidemia 2D DIMENSIONS IVSd1.7 (0.7-1.1cm)Aortic Root (2D)3.0 (2.0-3.7cm) LVDd3.3 (3.9-5.9cm)PWd1.2 (0.7-1.1cm) LVDs2.5 (2.5-4.0cm)FS (%) 24.8 % LVEF (%)50.4 (>50%) M-Mode DIMENSIONS RVDd2.28 (2.1-3.2cm)Left Atrium (MM)3.64 (2.5-4.0cm) IVSd1.04 (0.7-1.1cm)Aortic Root2.77 (2.2-3.7cm) LVDd4.36 (4.0-5.6cm)Aortic Cusp Exc.1.72 (1.5-2.0cm) PWd1.17 (0.7-1.1cm)FS (%) 57 % LVDs1.85 (2.0-3.8cm)LVEF (%)88 (>50%) Mitral Valve MV E Chbcveps346.9cm/sMV A Wyvnxxjj243.4cm/sE/A ratio0.8 TDI E/Lateral E'0.0E/Medial E'0.0 Tricuspid Valve TR Peak Vogwksbo796fm/sTR Peak Gr.[id number] LEFT VENTRICLE The left ventricle is normal size. There is mild to moderate concentric left ventricular hypertrophy. Left ventricle systolic function is normal. The Ejection Fraction is >70%. There is normal LV segmental wall motion. Transmitral Doppler flow pattern is Grade I-abnormal relaxation pattern. There is no ventricular septal defect visualized. RIGHT VENTRICLE The right ventricle is normal size. The right ventricular systolic function is normal. ATRIA The left atrium size is normal. The right atrium size is normal. AORTIC VALVE The aortic valve is mildly sclerotic. The aortic valve is tri-cuspid. No aortic regurgitation is present. There is no aortic valvular stenosis. MITRAL VALVE The mitral valve is normal in structure. There is no evidence of mitral valve prolapse. Mitral regurgitation is moderate. TRICUSPID VALVE The tricuspid valve is normal in structure. There is moderate tricuspid regurgitation. Right ventricular systolic pressure is estimated at 50-60 mmHg. There is moderate-severe pulmonary hypertension. PULMONIC VALVE The pulmonary valve is normal in structure. There is no pulmonic valvular regurgitation. GREAT VESSELS The IVC is normal in size and collapses >50% with inspiration. PERICARDIAL EFFUSION There is no pericardial effusion. <Conclusion> There is mild to moderate concentric left ventricular hypertrophy. Left ventricle systolic function is normal. The Ejection Fraction is >70%. Transmitral Doppler flow pattern is Grade I-abnormal relaxation pattern. Mitral regurgitation is moderate. There is moderate-severe pulmonary hypertension.
--- NOTE | 2016-05-21 16:16 | CON ---
DATE: 05/21/2016 ROOM: ICU, room 16. HISTORY OF PRESENT ILLNESS: This is a 76-year-old female presenting here with precordial and upper n yamila pain and also has been evaluated to be in congestive heart failure and is now being referred for endocrine evaluation because of abnormal thyroid function studies. PAST MEDICAL HISTORY: History of coronary artery disease with a previous coronary stent placement wi th a PTCA procedure undertaken, history of hypertensive cardiovascular disease and dyslipidemia, hist ory of chronic anemia as noted, history of generalized osteoarthritis. FAMILY HISTORY: Positive for hypertension and heart disease. SOCIAL HISTORY: The patient has supportive family. No known substance use. REVIEW OF SYSTEMS: Admits to generalized body weakness with easy fatigability and tiredness and subo ptimal energy level. Also admits to episodic dizziness and lightheadedness, worse on the day of admi ssion. Also, admits to recent onset of precordial chest pain with radiation to the upper neck and sh oulder area with occasional bouts of shortness of breath, especially on exertion. Also, admits to pa roxysmal nocturnal dyspnea. She admits to episodic bouts of palpitations, especially on the day of a dmission. Also admits to recent nasal and throat congestion with bronchorrhea as noted. Her oral in take is variable and suboptimal with dyspepsia, nausea and vague upper abdominal pains. Also admits to occasional alternating diarrhea and constipation. Also admits to lower extremity paresthesias wit h polymyalgias and polyarthralgias as noted. PHYSICAL EXAMINATION: GENERAL: This is an average built female in no apparent distress. VITAL SIGNS: Blood pressure of 160/90, pulse of 80 beats per minute regular, temperature 98, respira tions 20. Height is 5 foot 2 inches. Weight is 142 pounds. HEENT: Head normocephalic. Eyes anicteric with pink conjunctivae. Fundoscopy not possible at this time. Ears, nose and throat otherwise normal. NECK: Supple. Thyroid gland is normal size. No carotid bruits. No cervical adenopathy. CARDIOPULMONARY: There is an adynamic precordium. S1, S2 is rapid and regular. LUNGS: Show scattered rhonchi. ABDOMEN: Flat, soft with positive bowel sounds. EXTREMITIES: No peripheral edema. Pulses are +2 bilaterally. LABORATORY DATA: Showed a BUN of 12, sodium 137, potassium 3.4, chloride 100, CO2 of 22, glucose 188 and creatinine 0.9. Her proBNP was 2460. Thyroid studies showed an initial T4 of 8.5 with a repeat one of 9.32 mcg/dL. The TSH was initially reported as 0.26 with a repeat level of 0.14. ASSESSMENT: This is a 76-year-old female with constitutional symptoms which could be nonspecific at this point, but because of the concomitant polymyalgias and marked easy fatigability and tiredness wi th concomitant biochemical evidence of suppressed TSH with normal total T4 levels indicative of subcl inical hyperthyroidism, then there may be a possible link up with aforementioned constitutional manif estations as mentioned. The most likely etiology would be the so-called apathetic Graves' disease an d this patient is actually clinically euthyroid at this time as noted otherwise. PLAN OF MANAGEMENT: Will start her empirically on the very low dose of medical therapy with Tapazole given as 5 mg p.o. b.i.d. after meals to start today as ordered. Will obtain a comprehensive thyroi d hormonal profile with a total and free T4 and TSH to be obtained tomorrow morning. Will also add t hyroid antibodies with a thyroid stimulating immunoglobulin and a thyroid peroxidase antibody, which will confirm and/or negate the presence of underlying thyroid autoimmunity. Will hold off on the thy roid ultrasound evaluation for now. Will obtain serial thyroid studies and adjust her dose regimen a ccordingly. Yanet Smith MD cc: [phone] TT: 05/21/2016 16:16:10 Confirmation # [id number] Dictation # [id number] mn
[2016-05-21] MEDS: methIMAzole 5 MG TAB PO SCH (17:34)
[2016-05-21] MEDS ORDERED: Peg-Electrolyte Oral Soln 4L (Golytely) PO ONE (18:00)
[2016-05-21] MEDS: Fluticasone-Salmeterol 500-50mcg Diskus INH SCH (19:34)
--- NOTE | 2016-05-22 01:39 | CP.PCM.PN ---
Subjective - Date & Time of Evaluation Date of Evaluation: 05/21/16 Time of Evaluation: 20:40 - Subjective Subjective: Patient feels better Objective - Vital Signs/Intake and Output Vital Signs (last 24 hours): Temp Pulse Resp BP Pulse Ox 96.8 F L 102 H 19 177/68 H 98 05/21/16 20:00 05/21/16 22:00 05/21/16 22:00 05/21/16 20:31 05/21/16 20:00 Intake and Output: 05/21/16 05/22/16 18:59 06:59 Intake Total 650 2500 Output Total 800 2200 Balance -150 300 - Medications Medications: Current Medications Acetaminophen (Tylenol 325mg Tab) 325 mg PO QID [facility] Last Admin: 05/21/16 21:42 Dose: 325 mg Albuterol/Ipratropium (Duoneb 3 Mg/0.5 Mg (3 Ml) Ud) 3 ml INH RQ4 [facility] Last Admin: 05/21/16 23:40 Dose: Not Given Amlodipine Besylate (Norvasc) 10 mg PO DAILY [facility] Last Admin: 05/21/16 10:42 Dose: 10 mg Clonidine HCl (Catapres) 0.1 mg PO BID [facility] Last Admin: 05/21/16 17:34 Dose: 0.1 mg Ceftriaxone Sodium 1 gm/ (Dextrose) 100 mls @ 50 mls/30 min IVPB DAILY [facility] Last Admin: 05/21/16 10:43 Dose: 50 mls/30 min Losartan Potassium (Cozaar) 100 mg PO DAILY [facility] Last Admin: 05/21/16 10:42 Dose: 100 mg Methimazole (Tapazole) 5 mg PO BID [facility] Last Admin: 05/21/16 17:34 Dose: 5 mg Pantoprazole Sodium (Protonix Ec Tab) 40 mg PO DAILY [facility] Last Admin: 05/21/16 10:42 Dose: 40 mg Pneumococcal Polyvalent Vaccine (Pneumovax 23 Vaccine) 0.5 ml IM .ONCE ONE Stop: 05/22/16 10:01 Rosuvastatin Calcium (Crestor) 10 mg PO HS [facility] Last Admin: 05/21/16 21:41 Dose: 10 mg Fluticasone/Salmeterol (Advair Diskus 500/50) 1 puff INH RQ12 [facility] Last Admin: 05/21/16 19:34 Dose: 1 puff - Labs Labs: 05/21/16 12:09 05/21/16 12:09
[2016-05-22] MEDS: Albuterol-Ipratrop 3 mg / 0.5 (3 ml) UD INH SCH ×4 (03:25→16:13)
[2016-05-22] MEDS: Fluticasone-Salmeterol 500-50mcg Diskus INH SCH (07:25)
[2016-05-22] MEDS ORDERED: Pneumococcal 23-Valent Vaccine IM ONE (10:00)
[2016-05-22] MEDS ORDERED: cefTRIAXone IV 1 gm in Dextros 50 ML IVPB SCH (10:00)
[2016-05-22] MEDS ORDERED: Potassium Chloride 10 mEq ER Tab PO ONE (10:00)
[2016-05-22] MEDS: Pantoprazole 40 mg EC Tab PO SCH (10:11)
[2016-05-22] MEDS: methIMAzole 5 MG TAB PO SCH ×2 (10:11→20:00)
--- NOTE | 2016-05-22 13:49 | CP.PCM.PN ---
Subjective - Date & Time of Evaluation Date of Evaluation: 05/22/16 Time of Evaluation: 08:20 - Subjective Subjective: Pt feels much beter; Want to go home NO CP, no SOB, no diarrhea, santosh dec cough Objective - Vital Signs/Intake and Output Vital Signs (last 24 hours): Temp Pulse Resp BP Pulse Ox 97.8 F 87 20 159/74 H 97 05/22/16 04:15 05/22/16 11:13 05/22/16 04:15 05/22/16 04:15 05/22/16 04:15 Intake and Output: 05/22/16 05/22/16 06:59 18:59 Intake Total 2500 Output Total 2200 Balance 300 - Medications Medications: Current Medications Acetaminophen (Tylenol 325mg Tab) 325 mg PO QID [facility] Last Admin: 05/22/16 10:11 Dose: 325 mg Albuterol/Ipratropium (Duoneb 3 Mg/0.5 Mg (3 Ml) Ud) 3 ml INH RQ4 [facility] Last Admin: 05/22/16 07:26 Dose: Not Given Amlodipine Besylate (Norvasc) 10 mg PO DAILY [facility] Last Admin: 05/22/16 10:10 Dose: 10 mg Clonidine HCl (Catapres) 0.1 mg PO BID [facility] Last Admin: 05/22/16 10:10 Dose: 0.1 mg Ceftriaxone Sodium (Rocephin Iv 1 Gm Duplex) 50 mls @ 50 mls/30 min IVPB DAILY [facility] Last Admin: 05/22/16 10:10 Dose: 50 mls/30 min Losartan Potassium (Cozaar) 100 mg PO DAILY [facility] Last Admin: 05/22/16 10:10 Dose: 100 mg Methimazole (Tapazole) 5 mg PO BID [facility] Last Admin: 05/22/16 10:11 Dose: 5 mg Pantoprazole Sodium (Protonix Ec Tab) 40 mg PO DAILY [facility] Last Admin: 05/22/16 10:11 Dose: 40 mg Rosuvastatin Calcium (Crestor) 10 mg PO HS [facility] Last Admin: 05/21/16 21:41 Dose: 10 mg Fluticasone/Salmeterol (Advair Diskus 500/50) 1 puff INH RQ12 [facility] Last Admin: 05/22/16 07:25 Dose: Not Given - Labs Labs: 05/21/16 12:09 05/21/16 12:09 - Constitutional Appears: No Acute Distress - Eye Exam Eye Exam: Normal appearance - ENT Exam ENT Exam: Mucous Membranes Moist - Respiratory Exam Respiratory Exam: Clear to Ausculation Bilateral. absent: Rales, Rhonchi, Wheezes - Cardiovascular Exam Cardiovascular Exam: REGULAR RHYTHM, +S1, +S2. absent: Gallop, JVD - GI/Abdominal Exam GI & Abdominal Exam: Soft. absent: Tenderness, Mass - Extremities Exam Extremities Exam: Full ROM, Normal Capillary Refill. absent: Calf Tenderness, Joint Swelling, Pedal Edema Assessment and Plan - Assessment and Plan (Free Text) Assessment: COPD, Exac CAD; Hyperthyroidism; Anemia w/ Leukocytosis Will get Thomas/ onco opinion For colonoscopy Cotn meds
[2016-05-22] MEDS ORDERED: Etomidate 20 mg/10ml Inj IV ONE (14:43)
[2016-05-22] MEDS ORDERED: Midazolam 2 MG/2 ML VIAL ONE (14:43)
[2016-05-22 15:53] LABS: HEMATOCRIT 35.2 % (34.0-47.0); MEAN CELL VOLUME 73.5 fL (81.0-99.0); MEAN CORPUSCULAR HEMOGLOBIN 23.3 pg (27.0-31.0); MEAN CORPUSCULAR HGB CONC 31.7 g/dL (33.0-37.0); MEAN PLATELET VOLUME 7.6 fL (7.2-11.7); RED CELL DISTRIBUTION WIDTH 23.5 % (11.5-14.5); WHITE BLOOD COUNT 14.9 K/uL (4.8-10.8)
[2016-05-22 16:33] LABS: T4 9.48 ug/dL (5.5-11.0)
[2016-05-22 16:47] LABS: THYROID STIMULATING HORMONE 1.24 mIU/L (0.46-4.68)
--- NOTE | 2016-05-22 20:21 | PN ---
DATE: 05/22/2016 ROOM: 665. This is a 76-year-old female with constitutional symptoms and somatic manifestation of generalized jyotsna dy weakness, polymyalgia and polyarthralgias, who presented here with progressive shortness of breath and evaluated to be in congestive heart failure and is now being followed closely for metabolic kiran gement. She remains clinically euthyroid, but biochemically has evidence of the so-called subclinica l hyperthyroidism as noted thereof. She has been started on low dose Tapazole given as 5 mg b.i.d. a s ordered. Her latest chemistry showed a BUN of 17, sodium 139, potassium 4.4, chloride 97, CO2 of 2 5, glucose 71 and creatinine 1.1. Her thyroid study showed a T4 of 9.32 with a TSH of 0.14 and the r epeat levels today, following the initiation of medical therapy, showed a T4 of 9.48 with a TSH of 1. 24. So at this time will continue the low-dose medical therapy with Tapazole given as [address] meals as ordered. Will lower the dosing to once a day as indicated. Will obtain serial chemistr ies and supplement accordingly as needed. Will also obtain serial thyroid studies and adjust her dos e regimen accordingly. Will follow. Yanet Smith MD cc: [id number] TT: 05/22/2016 20:20:00 Confirmation # [id number] Dictation # [id number]
[2016-05-22 20:50] VITALS: RESP 20
--- NOTE | 2016-05-22 22:30 | CP.PCM.PN ---
Subjective - Date & Time of Evaluation Date of Evaluation: 05/22/16 Time of Evaluation: 19:30 - Subjective Subjective: Patient seen and evaluated No cardiac symptoms at this point Further cardiac tests as out patient Objective - Vital Signs/Intake and Output Vital Signs (last 24 hours): Temp Pulse Resp BP Pulse Ox 98.2 F 92 H 20 177/70 H 99 05/22/16 20:00 05/22/16 20:00 05/22/16 20:00 05/22/16 20:00 05/22/16 20:00 Intake and Output: 05/22/16 05/23/16 18:59 06:59 Intake Total 50 Balance 50 - Medications Medications: Current Medications Acetaminophen (Tylenol 325mg Tab) 325 mg PO QID [facility] Last Admin: 05/22/16 22:24 Dose: 325 mg Albuterol/Ipratropium (Duoneb 3 Mg/0.5 Mg (3 Ml) Ud) 3 ml INH RQ4 [facility] Last Admin: 05/22/16 16:13 Dose: Not Given Amlodipine Besylate (Norvasc) 10 mg PO DAILY [facility] Last Admin: 05/22/16 10:10 Dose: 10 mg Clonidine HCl (Catapres) 0.1 mg PO BID [facility] Last Admin: 05/22/16 20:00 Dose: 0.1 mg Ceftriaxone Sodium (Rocephin Iv 1 Gm Duplex) 50 mls @ 50 mls/30 min IVPB DAILY [facility] Last Admin: 05/22/16 10:10 Dose: 50 mls/30 min Losartan Potassium (Cozaar) 100 mg PO DAILY [facility] Last Admin: 05/22/16 10:10 Dose: 100 mg Methimazole (Tapazole) 5 mg PO BID [facility] Last Admin: 05/22/16 20:00 Dose: 5 mg Pantoprazole Sodium (Protonix Ec Tab) 40 mg PO DAILY [facility] Last Admin: 05/22/16 10:11 Dose: 40 mg Rosuvastatin Calcium (Crestor) 10 mg PO HS [facility] Last Admin: 05/22/16 22:24 Dose: 10 mg Fluticasone/Salmeterol (Advair Diskus 500/50) 1 puff INH RQ12 [facility] Last Admin: 05/22/16 07:25 Dose: Not Given - Labs Labs: 05/22/16 15:47 05/21/16 12:09 PT 11.7 SECONDS (9.7-12.2) 05/22/16 15:47 INR 1.0 05/22/16 15:47 APTT 37 SECONDS (21-34) H 05/22/16 15:47
[2016-05-23] MEDS: Albuterol-Ipratrop 3 mg / 0.5 (3 ml) UD INH SCH ×4 (00:22→09:28)
[2016-05-23 00:35] VITALS: TEMP 98.6
[2016-05-23] MEDS: Fluticasone-Salmeterol 500-50mcg Diskus INH SCH ×2 (07:24→09:28)
--- NOTE | 2016-05-23 07:51 | CP.PCM.PN ---
Subjective - Date & Time of Evaluation Date of Evaluation: 05/23/16 Time of Evaluation: 07:45 - Subjective Subjective: Pt no complain exc stiff neck; Walk around w/ no problem Npo more CP, no SOB, no edema Objective - Vital Signs/Intake and Output Vital Signs (last 24 hours): Temp Pulse Resp BP Pulse Ox 98.6 F 78 20 152/66 H 98 05/23/16 00:00 05/23/16 01:16 05/23/16 00:00 05/23/16 00:00 05/23/16 00:00 - Medications Medications: Current Medications Acetaminophen (Tylenol 325mg Tab) 325 mg PO QID [facility] Last Admin: 05/22/16 22:24 Dose: 325 mg Albuterol/Ipratropium (Duoneb 3 Mg/0.5 Mg (3 Ml) Ud) 3 ml INH RQ4 [facility] Last Admin: 05/23/16 07:25 Dose: Not Given Amlodipine Besylate (Norvasc) 10 mg PO DAILY [facility] Last Admin: 05/22/16 10:10 Dose: 10 mg Clonidine HCl (Catapres) 0.1 mg PO BID [facility] Last Admin: 05/22/16 20:00 Dose: 0.1 mg Ceftriaxone Sodium (Rocephin Iv 1 Gm Duplex) 50 mls @ 50 mls/30 min IVPB DAILY [facility] Last Admin: 05/22/16 10:10 Dose: 50 mls/30 min Losartan Potassium (Cozaar) 100 mg PO DAILY [facility] Last Admin: 05/22/16 10:10 Dose: 100 mg Methimazole (Tapazole) 5 mg PO BID [facility] Last Admin: 05/22/16 20:00 Dose: 5 mg Pantoprazole Sodium (Protonix Ec Tab) 40 mg PO DAILY [facility] Last Admin: 05/22/16 10:11 Dose: 40 mg Rosuvastatin Calcium (Crestor) 10 mg PO HS [facility] Last Admin: 05/22/16 22:24 Dose: 10 mg Fluticasone/Salmeterol (Advair Diskus 500/50) 1 puff INH RQ12 [facility] Last Admin: 05/23/16 07:24 Dose: Not Given - Labs Labs: 05/22/16 15:47 05/21/16 12:09 PT 11.7 SECONDS (9.7-12.2) 05/22/16 15:47 INR 1.0 05/22/16 15:47 APTT 37 SECONDS (21-34) H 05/22/16 15:47 - Constitutional Appears: No Acute Distress - Eye Exam Eye Exam: Normal appearance - ENT Exam ENT Exam: Mucous Membranes Moist - Neck Exam Neck Exam: Full ROM. absent: Lymphadenopathy - Respiratory Exam Respiratory Exam: Clear to Ausculation Bilateral. absent: Rales, Rhonchi - Cardiovascular Exam Cardiovascular Exam: +S1, +S2. absent: Gallop, REGULAR RHYTHM - GI/Abdominal Exam GI & Abdominal Exam: Soft. absent: Tenderness, Normal Bowel Sounds - Extremities Exam Extremities Exam: Full ROM, Normal Capillary Refill. absent: Calf Tenderness, Joint Swelling, Pedal Edema Assessment and Plan - Assessment and Plan (Free Text) Assessment: Anemia s/p EGD/ Colonoscopy - no active bleeding Hyperthyroidism 2 thyroid nodule HTN, CAD, ASVD Will discharge Advise stop smoking Z-pk + Breo; add Tapazole 5 mg daily
[2016-05-23] MEDS: methIMAzole 5 MG TAB PO SCH (09:27)
[2016-05-23] MEDS: Pantoprazole 40 mg EC Tab PO SCH (09:27)
[2016-05-23] MEDS ORDERED: methIMAzole 5 MG TAB PO SCH (10:00)
--- NOTE | 2016-05-23 11:17 | PN ---
DATE: 05/23/2016 ROOM: 665 This is a 76-year-old female presenting here with acute exacerbation of COPD and underlying marked an emia and has also been evaluated to have subclinical hyperthyroidism and started on medical therapy, which she is tolerating fairly well at this time. Her initial chemistries showing the thyroid studie s had a T4 of 8.54 with a TSH of 0.26. The repeat thyroid studies following the initiation of medica l therapy showed a T4 of 9.48 with a TSH of 1.24 and a free T4 of 1.26. So at this time, she remains clinically euthyroid with remarkable improvement of her biochemical thyroid indices as noted. So fo r now, we will lower the Tapazole of 5 mg b.i.d. to Tapazole 5 mg once daily as ordered. We will obt ain serial chemistries and supplement accordingly as needed. We will obtain serial thyroid studies t o optimize her metabolic control. We will follow. Yanet Smith MD cc: [id number] TT: 05/23/2016 11:16:37 Confirmation # [id number] Dictation # [id number]
--- NOTE | 2016-05-23 12:09 | CP.PCM.PN ---
Subjective - Date & Time of Evaluation Date of Evaluation: 05/23/16 Time of Evaluation: 12:07 - Subjective Subjective: Patient feels well. She denies having nausea, vomiting, abdominal pain. She had one bowel movement since the colonoscopy which was formed, without blood. Objective - Vital Signs/Intake and Output Vital Signs (last 24 hours): Temp Pulse Resp BP Pulse Ox 98.6 F 93 H 20 160/80 H 96 05/23/16 08:53 05/23/16 08:53 05/23/16 08:53 05/23/16 08:53 05/23/16 08:53 - Medications Medications: Current Medications Acetaminophen (Tylenol 325mg Tab) 325 mg PO QID [facility] Last Admin: 05/23/16 09:27 Dose: 325 mg Albuterol/Ipratropium (Duoneb 3 Mg/0.5 Mg (3 Ml) Ud) 3 ml INH RQ4 [facility] Last Admin: 05/23/16 09:28 Dose: Not Given Amlodipine Besylate (Norvasc) 10 mg PO DAILY [facility] Last Admin: 05/23/16 09:27 Dose: 10 mg Clonidine HCl (Catapres) 0.1 mg PO BID [facility] Last Admin: 05/23/16 09:27 Dose: 0.1 mg Ceftriaxone Sodium (Rocephin Iv 1 Gm Duplex) 50 mls @ 50 mls/30 min IVPB DAILY [facility] Last Admin: 05/22/16 10:10 Dose: 50 mls/30 min Losartan Potassium (Cozaar) 100 mg PO DAILY [facility] Last Admin: 05/23/16 09:27 Dose: 100 mg Methimazole (Tapazole) 5 mg PO DAILY [facility] Last Admin: 05/23/16 10:15 Dose: 5 mg Pantoprazole Sodium (Protonix Ec Tab) 40 mg PO DAILY [facility] Last Admin: 05/23/16 09:27 Dose: 40 mg Rosuvastatin Calcium (Crestor) 10 mg PO HS [facility] Last Admin: 05/22/16 22:24 Dose: 10 mg Fluticasone/Salmeterol (Advair Diskus 500/50) 1 puff INH RQ12 [facility] Last Admin: 05/23/16 09:28 Dose: Not Given - Labs Labs: 05/22/16 15:47 05/21/16 12:09 PT 11.7 SECONDS (9.7-12.2) 05/22/16 15:47 INR 1.0 05/22/16 15:47 APTT 37 SECONDS (21-34) H 05/22/16 15:47 - Constitutional Appears: No Acute Distress - Head Exam Head Exam: ATRAUMATIC, NORMOCEPHALIC - Eye Exam Eye Exam: EOMI, PERRL - Neck Exam Neck Exam: absent: Lymphadenopathy, Thyromegaly - Respiratory Exam Respiratory Exam: NORMAL BREATHING PATTERN. absent: Rales, Rhonchi, Wheezes - Cardiovascular Exam Cardiovascular Exam: REGULAR RHYTHM, +S1, +S2. absent: Gallop, Rubs, Murmur - GI/Abdominal Exam GI & Abdominal Exam: Soft, Normal Bowel Sounds. absent: Tenderness, Mass, Organomegaly - Rectal Exam Rectal Exam: Deferred - Extremities Exam Extremities Exam: absent: Calf Tenderness, Pedal Edema Assessment and Plan (1) Anemia, iron deficiency Assessment & Plan: Colonoscopy showed diverticulosis and a polyp which was removed. Recommend office follow up in one to two weeks/ Status: Acute
[2016-05-23 14:39] VITALS: BP 152/66; PULSE 78; O2SAT 98
== END 2016-05-23 13:33 | disposition home or self-care (01) | DRG 194 ==
LOC: C.ER 18:29 → C.9E 22:54 → C.9I 05-20 11:16 → C.5T 05-22 02:06 → C.6T 05-22 17:17
PROVIDERS: ADMIT Internal Medicine; ATTEND Internal Medicine
PROC: 0DBN8ZX Excision of Sigmoid Colon, Via Natural or Artificial Opening Endoscopic, Diagnostic (ICD-10-PCS; principal; 2016-05-21)
DX: J18.9 Pneumonia, unspecified organism (principal); J44.0 Chronic obstructive pulmonary disease with (acute) lower respiratory infection; I11.0 Hypertensive heart disease with heart failure; I50.9 Heart failure, unspecified; I27.2 Other secondary pulmonary hypertension; J44.1 Chronic obstructive pulmonary disease with (acute) exacerbation; D50.9 Iron deficiency anemia, unspecified; I34.0 Nonrheumatic mitral (valve) insufficiency; E87.6 Hypokalemia; E78.00 Pure hypercholesterolemia, unspecified; I25.10 Atherosclerotic heart disease of native coronary artery without angina pectoris; Z87.891 Personal history of nicotine dependence; Z95.5 Presence of coronary angioplasty implant and graft; E05.90 Thyrotoxicosis, unspecified without thyrotoxic crisis or storm; K57.90 Diverticulosis of intestine, part unspecified, without perforation or abscess without bleeding; K64.8 Other hemorrhoids; D12.5 Benign neoplasm of sigmoid colon